=== PATIENT | female | born 2000 | race African-American/Black ===

== ENCOUNTER 2023-04-23 21:41 | Emergency (ER) | payer SELFPAY ==
[2023-04-23] MEDS ORDERED: Ondansetron PF 4 MG/2 ML Vial ONE (22:37)
[2023-04-23] MEDS ORDERED: Morphine 4 MG/ML VIAL ONE (22:37)
[2023-04-23 23:05] LABS: Hemoglobin 12.3 g/dL (12.0-15.5); Mean Corpuscular HGB CONC 34.2 g/dL (32.0-36.0); Mean Corpuscular Volume 87.8 fl (81.6-98.3); Mean Platelet Volume 10.1 fl (7.4-10.4); Platelet Count 313 10x3/uL (150-450); RBC Distribution Width 12.3 % (11.5-14.5); White Blood Cell (WBC) Count 23.7 10x3/uL (3.5-10.5)
[2023-04-23 23:22] LABS: Band 20 % (5-11); Lymphocytes 1 % (21-51); Monocytes 5 % (0-10); Neutrophil 74 % (42-75)
[2023-04-23 23:23] LABS: Platelet Adequacy Comment Appears Adequate; RBC Morph Comment Within Normal Limits
[2023-04-23 23:24] LABS: ALT (SGPT) 40 U/L (8-55); AST (SGOT) 18 U/L (5-34); Alkaline Phosphatase 61 U/L (40-110); Anion Gap 15 mmol/L (10-20); BUN (Urea Nitrogen) 7 mg/dL (7.0-18.7); Bilirubin, Total 1.5 mg/dL (0.2-1.2); Calc. Creatinine Clearance 0 mL/min (70-130); Calcium 8.9 mg/dL (7.8-10.44); Carbon Dioxide 21 mmol/L (22-29); Chloride 103 mmol/L (98-107); Estimated GFR 126; Globulin 3.6 g/dL (2.4-3.5); Glucose 135 mg/dL (70-105); Potassium 3.8 mmol/L (3.5-5.1); Protein, Total 7.6 g/dL (6.0-8.3); Sodium 135 mmol/L (136-145)
[2023-04-23 23:49] LABS: MDiff Complete? YES
[2023-04-24] MEDS ORDERED: cefTRIAXone (ROCEPHIN) 500 MG VIAL ONE (01:57)
[2023-04-24] MEDS ORDERED: Sterile Water 10 ML ONE (01:58)
[2023-04-24] MEDS ORDERED: Azithromycin 250 MG TAB PO SCH (02:15)
[2023-04-24] MEDS ORDERED: Azithromycin 250 MG TAB ONE (02:26)
[2023-04-24] MEDS ORDERED: Morphine 4 MG/ML VIAL ONE (03:27)
[2023-04-24] MEDS ORDERED: Iopamidol 300 61% 100 ML VIAL FS ONE (11:25)
== END 2023-04-24 05:40 | disposition home or self-care (01) ==
LOC: CSHERS 21:41
DX: K52.9 Noninfective gastroenteritis and colitis, unspecified (principal); A74.9 Chlamydial infection, unspecified; A54.9 Gonococcal infection, unspecified
CPT/HCPCS: 36415; 74177; 76856; 80053; 83605; 84702; 85025; 96361; 96372; 96374; 96375; 96376; J0696; J2270; J2405; Q9967

== ENCOUNTER 2023-12-04 22:39 | Emergency (ER) | payer MEDICAID, OTHER | END 2023-12-05 01:30 | disposition home or self-care (01) | LOC: CSHERS 22:39 | DX: H10.021 Other mucopurulent conjunctivitis, right eye (principal) | CPT/HCPCS: 99282 ==